=== PATIENT | male | born 1945 | race Caucasian/White ===

== ENCOUNTER 2016-06-01 19:28 | Inpatient (IN) | payer MEDICARE ==
[~2016-06-01] VITALS: Ht 188 cm; Wt 108.6 kg
[2016-06-01] MEDS ORDERED: NS IV 500 ML 500 ML IV SCH (19:55)
--- NOTE | 2016-06-01 20:01 | NUR ---
PATIENT GIVES STAFF PERMISSION TO RELEASE INFORMATION ON HIMSELF TO HIS ROOMATE YAZMIN NAVA SHE WILL ALSO BE THE ONE PICKING HIM UP IF HE DOES GO HOME TONIGHT.
[2016-06-01 20:06] LABS: BASOPHILS % (AUTO) 0 % (0-2); EOSINOPHILS # (AUTO) 0.1 10^3uL; EOSINOPHILS % (AUTO) 0 % (0-4); LYMPHOCYTES # (AUTO) 2.5 X10^3; MEAN CORPUSCULAR HEMOGLOBIN 28.3 PG (26.0-34.0); MEAN PLATELET VOLUME 10.6 FL (6.0-9.5); MONOCYTES # (AUTO) 0.9 X10^3; MONOCYTES % (AUTO) 6 % (3-11); NEUTROPHILS # (AUTO) 12.5 X10^3; NEUTROPHILS % (AUTO) 78 % (51-67); PLATELET COUNT 374 10^3uL (150-450); WHITE BLOOD COUNT 16.02 10^3uL (4.0-11.0)
[2016-06-01 20:08] LABS: MEAN CORPUSCULAR HGB CONC 37.5 g/dL (31.0-37.0); MEAN CORPUSCULAR VOLUME 76 FL (80-100)
[2016-06-01 20:19] LABS: ALBUMIN 4.4 g/dL (3.4-5.0); ANION GAP 17.2 MEQ/L (3-15); CALCULATED IONIZED CALCIUM 3.8 mg/dL (3.8-4.6)
--- NOTE | 2016-06-01 21:36 | NUR ---
REPORSTIONE HOB PT SAYS FEELS LIKE HE IS SITTING ON BUTTOM TO LONG. URINAL ALSO GIVEN TO PT NEEDS TO VOID
--- NOTE | 2016-06-01 21:41 | NUR ---
UA OBTAINED , HAS VERY STRONG FOUL SMELL AND IS DARK YELLOW IN COLOR
[2016-06-01 22:30] LABS: BILIRUBIN,URINE Negative (Negative); CLARITY,URINE Clear; COLOR,URINE Yellow; GLUCOSE, URINE (UA) Negative (Negative); LEUKOCYTE ESTERASE ,URINE Negative (Negative)
[2016-06-01 22:35] LABS: URINE CENTRIFUGED VOLUME 12 mL
[2016-06-01 22:36] LABS: AMPHETAMINE SCREEN, URINE Negative (Negative); CANNABINOID SCREEN, URINE Negative (Negative); METHAMPHETAMINE SCREEN URINE S NEGATIVE (NEGATIVE); OPIATE SCREEN URINE Positive (Negative); PROPOXYPHENE STAT NEGATIVE (NEGATIVE)
--- NOTE | 2016-06-01 22:50 | NUR ---
Pt arrives via cart from ED. Transferred to bed via transfer sling. A/O x3. SL intact. Resp even and non labored on RA. Pt c/o R hip/sciatic pain. Code status discussed with patient. Verbalizes wishes for a "do not resuscitate" order. "If that happens, I just want with dignity." See admission assessment for further details.
[2016-06-01 23:15] VITALS: BP 139/70
[2016-06-02] MEDS ORDERED: CALCIUM CARBONATE CHEWABLE 300 MG (TUMS) TABLET PO PRN
[2016-06-02] MEDS ORDERED: ACETAMINOPHEN 325 MG TAB (TYLENOL) PO PRN
[2016-06-02] MEDS ORDERED: ONDANSETRON 2 MG/ML (Z0FRAN) 2 ML VIAL IV PRN
[2016-06-02 00:02] VITALS: BP 139/70
[2016-06-02] MEDS ORDERED: POTASSIUM CHLORIDE ER 10 MEQ CAPSULE PO ONE (01:00)
[2016-06-02] MEDS: POTASSIUM CHLORIDE ER 10 MEQ CAPSULE PO SCH ×4 (01:14→18:11)
[2016-06-02] MEDS: CYCLOBENZAPRINE 10 MG (FLEXERIL) TAB PO PRN ×2 (01:15→09:20)
[2016-06-02 04:19] VITALS: BP 128/76
--- NOTE | 2016-06-02 06:11 | NUR ---
Pt rests in long intervals after admission. PRN Flexeril given x1 for hip pain. NS cont infusing w/o difficulty. No needs at this time.
[2016-06-02 06:28] LABS: BASOPHILS % (AUTO) 0 % (0-2); EOSINOPHILS # (AUTO) 0.2 10^3uL; EOSINOPHILS % (AUTO) 2 % (0-4); LYMPHOCYTES # (AUTO) 2.9 X10^3; MEAN CORPUSCULAR HEMOGLOBIN 28.1 PG (26.0-34.0); MEAN PLATELET VOLUME 10.4 FL (6.0-9.5); MONOCYTES # (AUTO) 0.8 X10^3; MONOCYTES % (AUTO) 7 % (3-11); NEUTROPHILS # (AUTO) 7.3 X10^3; NEUTROPHILS % (AUTO) 64 % (51-67); PLATELET COUNT 300 10^3uL (150-450); WHITE BLOOD COUNT 11.27 10^3uL (4.0-11.0)
[2016-06-02 06:30] LABS: ALBUMIN 3.5 g/dL (3.4-5.0); ANION GAP 10.9 MEQ/L (3-15); TOTAL PROTEIN 6.5 g/dL (6.4-8.5)
[2016-06-02] MEDS: POTASSIUM CL IVPB 50 ML IV SCH ×11 (06:39→23:39)
--- NOTE | 2016-06-02 06:42 | NUR ---
Notified by Dr Torres of pt's critical potassium level. Dr Torres gives orders to replace potassium IV. First bag of potassium initiated. Pt updated on plan of care. Denies needs at this time.
[2016-06-02 06:52] LABS: MEAN CORPUSCULAR HGB CONC 36.6 g/dL (31.0-37.0); MEAN CORPUSCULAR VOLUME 77 FL (80-100)
[2016-06-02 08:13] VITALS: BP 168/68
[2016-06-02] MEDS: LIDOCAINE (LIDODERM) 5% PATCH TOP SCH (08:13)
[2016-06-02] MEDS: ENOXAPARIN 40 MG/0.4 ML (LOVENOX) SYR SC SCH (08:13)
[2016-06-02] MEDS: NYSTATIN POWDER 100,000 UNITS 15 GM BTL TOP SCH ×3 (10:05→18:14)
--- NOTE | 2016-06-02 11:15 | NUR ---
MED REC COMPLETED-current med list obtained from Ext Med History application and patient interview. By Ventura Frank, PharmD Candidate 2017.
[2016-06-02 11:18] VITALS: BP 124/65
[2016-06-02] MEDS ORDERED: NS FLUSH 10 ML PRN IV (11:55)
[2016-06-02] MEDS ORDERED: NS FLUSH 3 ML PRN IV (11:55)
[2016-06-02] MEDS ORDERED: DOCUSATE SODIUM 100 MG (COLACE) CAP PO ONE ×2 (13:45→16:14)
[2016-06-02 15:44] VITALS: BP 112/49
--- NOTE | 2016-06-02 17:54 | NUR ---
Pt has required maximum 2 assist throughout the shift, though pt seems to be getting stronger with each transfer. Skin warm, dry, intact. Resprs nonlabored, even on RA. Pt showered this morning with assistance. Groin is quite red bilaterally, though nystatin powder appears to be helping already. SL intact. Calls for assistance. Denies needs.
[2016-06-02] MEDS ORDERED: NS IV 500 ML 500 ML ONE (19:18)
[2016-06-02] MEDS: HYDROcodone/APAP 5 MG/325 MG (NORCO) TAB PO PRN (19:23)
--- NOTE | 2016-06-02 19:23 | NUR ---
PRN [place] given at this time for c/o R leg pain rated 7/10. IV KCl initiated at this time. Pt denies other needs.
[2016-06-02 19:59] VITALS: BP 149/72
[2016-06-02] MEDS: DOCUSATE SODIUM 100 MG (COLACE) CAP PO SCH (20:07)
[2016-06-02] MEDS: LIDOCAINE PATCH REMOVAL TOP SCH (20:08)
[2016-06-03 00:24] VITALS: BP 147/84
[2016-06-03] MEDS: POTASSIUM CL IVPB 50 ML IV SCH ×7 (00:51→17:15)
--- NOTE | 2016-06-03 03:59 | NUR ---
Pt lying in bed watching TV. Denies c/o.
[2016-06-03] MEDS: HYDROcodone/APAP 5 MG/325 MG (NORCO) TAB PO PRN ×4 (04:08→20:26)
[2016-06-03 04:30] VITALS: BP 128/82
--- NOTE | 2016-06-03 06:34 | NUR ---
Pt rests intermittently throughout the night. Pt tolerates potassium infusion w/o difficulty. PRN norco given for right hip/leg pain. SL intact. Resp even and non labored on RA. Pt up to chair with staff assist x2 and walker.
[2016-06-03 06:41] LABS: ALBUMIN 3.3 g/dL (3.4-5.0); ANION GAP 11.8 MEQ/L (3-15); MAGNESIUM* 2.4 mg/dL (1.6-2.3); PHOSPHORUS 2.6 mg/dL (2.4-4.9)
--- NOTE | 2016-06-03 07:30 | NUR ---
Patient awake in bed upon shift assessment. Alert and oriented X3. Reports bilateral hip pain rated 6/10 on pain scale. Denies SOA, nausea, muscle cramps, or other distress. Respirations even and non-labored on roomair. Telemetry intact and reflecting NSR with PVC at a rate of 70 bpm. No edema noted to BLE. Updated patient on plan of care for shift. Yellow gown and bed alarm intact for safety. Call light in reach.
[2016-06-03 07:42] VITALS: BP 143/85
[2016-06-03] MEDS ORDERED: POTASSIUM CHLORIDE ER 20 MEQ TABLET PO ONE (08:00)
[2016-06-03] MEDS: ENOXAPARIN 40 MG/0.4 ML (LOVENOX) SYR SC SCH (08:17)
[2016-06-03] MEDS: NS FLUSH 3 ML DAILY IV SCH (08:17)
[2016-06-03] MEDS: LIDOCAINE (LIDODERM) 5% PATCH TOP SCH (08:17)
[2016-06-03] MEDS: DOCUSATE SODIUM 100 MG (COLACE) CAP PO SCH ×2 (08:17→20:29)
[2016-06-03] MEDS: NYSTATIN POWDER 100,000 UNITS 15 GM BTL TOP SCH ×3 (08:18→17:19)
[2016-06-03] MEDS: CYCLOBENZAPRINE 10 MG (FLEXERIL) TAB PO PRN (08:18)
[2016-06-03 08:55] LABS: BILIRUBIN,URINE Negative (Negative); CLARITY,URINE Clear; GLUCOSE, URINE (UA) Negative (Negative); LEUKOCYTE ESTERASE, URINE Negative (Negative); PH,URINE 6.5 (5.0 - 8.0); UROBILINOGEN,URINE 0.2 mg/dL (0.2-1.0)
[2016-06-03 09:02] LABS: COLOR,URINE Dark Yellow
[2016-06-03 09:04] LABS: RBC,URINE 20-50 /HPF; URINE CENTRIFUGED VOLUME 12 mL
[2016-06-03 09:06] LABS: URINE POTASSIUM 34 mmoL/L (12-75)
[2016-06-03 11:23] VITALS: BP 131/76
[2016-06-03] MEDS: POTASSIUM CHLORIDE ER 20 MEQ TABLET PO SCH ×2 (12:30→17:15)
--- NOTE | 2016-06-03 13:49 | NUR ---
IV infiltrated in left hand. Discontinued with catheter intact. Small raised area noted, ice pack applied. Two unsuccessful attempts to restart made by this nurse to right back roll lathe operator. Kelsi Lora RN initiates 22g IV into right wrist on second attempt. IV KCl restarted.
[2016-06-03 15:35] VITALS: BP 138/78
--- NOTE | 2016-06-03 17:15 | NUR ---
Dr. More here and orders to hold fifth bag of potassium and get blood draw now. Lab notified.
[2016-06-03 17:45] LABS: ALBUMIN 3.4 g/dL (3.4-5.0); ANION GAP 11.7 MEQ/L (3-15); MAGNESIUM* 2.4 mg/dL (1.6-2.3); PHOSPHORUS 2.3 mg/dL (2.4-4.9)
--- NOTE | 2016-06-03 18:24 | NUR ---
Patient up to recliner consuming supper. Continues to report bilateral hip pain. Telemetry continues to reflect NSR with PVC. Call light in reach.
[2016-06-03 20:14] VITALS: BP 142/80
[2016-06-03] MEDS: LIDOCAINE PATCH REMOVAL TOP SCH (20:30)
--- NOTE | 2016-06-03 21:00 | NUR ---
Patient refused colace stating if he had too much he would have diarrhea.
--- NOTE | 2016-06-03 23:15 | NUR ---
Patient displayed pause in cardiac rhythm on bedside monitor while watching on third at 23:12, this nurse went to check patient who was observed resting on right side in bed with respirations even non labored. Another pause lasting same as first 1 second at 23:13. Primary RN notified and went to review on monitor in ICU.
--- NOTE | 2016-06-03 23:20 | NUR ---
Last pause at 23:16. Strips printed, primary nurse aware and is notifying hospitalist automation and controls supervisor of change in telemetry. Patient continues to rest in bed with no complaints.
[2016-06-04] VITALS (10 sets, daily range): BP systolic 139–190; BP diastolic 67–109
[2016-06-04] MEDS: HYDROcodone/APAP 5 MG/325 MG (NORCO) TAB PO PRN ×2 (04:57→11:32)
--- NOTE | 2016-06-04 05:00 | NUR ---
[place] given for severe pain raited 01/07. Patient thinks the medication does not work well.
[2016-06-04] MEDS: CYCLOBENZAPRINE 10 MG (FLEXERIL) TAB PO PRN ×2 (05:37→11:32)
--- NOTE | 2016-06-04 05:37 | NUR ---
[place] has not helped relieve pain at this point. Flexeril given. Assisted Patient back to bed. Patient has had low back and leg pain throughout night, but especially this morning. Adjusted in bed for patient comfort. Watching TV.
[2016-06-04 06:03] LABS: MEAN CORPUSCULAR HEMOGLOBIN 28.5 PG (26.0-34.0); MEAN PLATELET VOLUME 10.1 FL (6.0-9.5); WHITE BLOOD COUNT 9.4 10^3uL (4.0-11.0)
[2016-06-04 06:16] LABS: MEAN CORPUSCULAR HGB CONC 35.9 g/dL (31.0-37.0)
[2016-06-04 06:37] LABS: ALBUMIN 3.2 g/dL (3.4-5.0); ANION GAP 10.7 MEQ/L (3-15); MAGNESIUM* 2.2 mg/dL (1.6-2.3); PHOSPHORUS 2.6 mg/dL (2.4-4.9)
--- NOTE | 2016-06-04 07:35 | NUR ---
Patient sleeping in bed upon shift assessment. Arouses easily to verbal stimuli. Alert and oriented X3. Reports bilateral hip pain, right leg pain, and right calf "soreness". Right lower leg mildly larger in size than left lower leg. No redness noted and calf is not warm to touch. HR RRR. Telemetry intact and reflecting NSR with PVC. Respirations even and non-labored on roomair. Updated on plan of care for shift including increased activity, pain management, and potassium replacement. Call light in reach.
[2016-06-04] MEDS: LIDOCAINE (LIDODERM) 5% PATCH TOP SCH (08:23)
[2016-06-04] MEDS: POTASSIUM CHLORIDE ER 20 MEQ TABLET PO SCH ×3 (08:23→17:19)
[2016-06-04] MEDS: NS FLUSH 3 ML DAILY IV SCH ×2 (08:23→08:32)
[2016-06-04] MEDS: ENOXAPARIN 40 MG/0.4 ML (LOVENOX) SYR SC SCH (08:23)
[2016-06-04] MEDS: DOCUSATE SODIUM 100 MG (COLACE) CAP PO SCH ×2 (08:23→21:30)
[2016-06-04] MEDS: NYSTATIN POWDER 100,000 UNITS 15 GM BTL TOP SCH ×3 (08:24→17:15)
[2016-06-04] MEDS ORDERED: POTASSIUM CHLORIDE ER 20 MEQ TABLET PO ONE (08:55)
--- NOTE | 2016-06-04 11:32 | NUR ---
Routine vital signs obtained and BP found to be 180/102 manually. Patient reports lower back pain and right leg pain rated 10/10 on pain scale. PRN [place] and Flexeril provided. Dr. More notified. Patient denies headache or blurred vision. Will continue to monitor.
--- NOTE | 2016-06-04 12:20 | NUR ---
BP remains elevated at 179/[address] More notified. Patient reports lower back pain and right leg pain now rated "12/10" on pain scale. New order received.
[2016-06-04] MEDS ORDERED: HYDROmorphone 1 MG/ML (DILAUDID) SYRINGE IV ONE (12:35)
--- NOTE | 2016-06-04 12:41 | NUR ---
Dr. More here to see patient. Dilaudid 1mg IV X1 administered at this time. Will recheck BP in 30 minutes per order.
--- NOTE | 2016-06-04 13:01 | NUR ---
survey technologist here for BLE ultrasound.
[2016-06-04] MEDS ORDERED: hydrALAZINE 20 MG/ML (APRESOLINE) 1 ML VIAL IV PRN (13:35)
[2016-06-04] MEDS: lisINopril 20 MG (PRINIVIL) TABLET PO SCH (13:46)
--- NOTE | 2016-06-04 17:56 | NUR ---
Patient sits up in recliner before breakfast, for lunch, and for supper. Ambulating with 1 assist and walker. Weak and unsteady gate. Continues to report persistent hip pain. Rests in long intervals this afternoon. BP at 1600= 178/83. Pleasant and cooperative with cares. Telemetry reflecting NSR with PVC. Call light in reach.
[2016-06-04] MEDS: LIDOCAINE PATCH REMOVAL TOP SCH (21:30)
[2016-06-05 00:16] VITALS: BP 144/70
--- NOTE | 2016-06-05 04:31 | NUR ---
Pt is resting in bed asleep, has been up to restroom twice during this shift. Denies pain or discomfort, call light in reach, will continue to monitor.
[2016-06-05 04:41] VITALS: BP 138/72
[2016-06-05 06:09] LABS: MEAN CORPUSCULAR HEMOGLOBIN 28.7 PG (26.0-34.0); WHITE BLOOD COUNT 9.36 10^3uL (4.0-11.0)
[2016-06-05 06:13] LABS: MEAN CORPUSCULAR HGB CONC 35.5 g/dL (31.0-37.0)
[2016-06-05 06:43] LABS: ALBUMIN 3.2 g/dL (3.4-5.0); ANION GAP 10.9 MEQ/L (3-15); CALCULATED IONIZED CALCIUM 4.1 mg/dL (3.8-4.6); MAGNESIUM* 2.1 mg/dL (1.6-2.3); PHOSPHORUS 2.8 mg/dL (2.4-4.9); TOTAL PROTEIN 6.2 g/dL (6.4-8.5)
[2016-06-05 08:06] VITALS: BP 156/82
[2016-06-05] MEDS: HYDROcodone/APAP 5 MG/325 MG (NORCO) TAB PO PRN ×2 (08:45→20:07)
[2016-06-05] MEDS: lisINopril 20 MG (PRINIVIL) TABLET PO SCH (08:45)
--- NOTE | 2016-06-05 08:45 | NUR ---
PRN [place] given at this time for c/o R leg pain rated 9/10. Pt resting in bed upon assessment. SL intact. Skin warm, dry, intact. Resprs nonlabored, even on RA. Pt states he does feel that he is getting stronger. Pt sat up on edge of bed with no assistance. Pt getting up to shower with assistance at this time.
[2016-06-05] MEDS: POTASSIUM CHLORIDE ER 20 MEQ TABLET PO SCH ×3 (08:46→17:41)
[2016-06-05] MEDS: NS FLUSH 3 ML DAILY IV SCH (08:48)
[2016-06-05] MEDS: ENOXAPARIN 40 MG/0.4 ML (LOVENOX) SYR SC SCH (08:48)
[2016-06-05] MEDS: DOCUSATE SODIUM 100 MG (COLACE) CAP PO SCH ×2 (08:54→20:07)
--- NOTE | 2016-06-05 08:56 | NUR ---
NUTRITION ASSESSMENT Level 1 Patient: Thuan Fenton Age/Sex: 70/M Date Screened: 06-05-16 Weight: 238.9#/108.6 kg Height: 74 inches Primary Diagnosis: weakness Diet Order: regular Relevant labs: potassium 2.9, glucose 172, Hgb A1c 7.2 Food allergies: N Nutrition Assessment Criteria Age over 80: N Body Mass Index (BMI) under 19: N Admission Screening Indicates Risk? 3 points Moderate/High Risk Diagnosis: N TPN or PPN: N NPO or clear liquid diet: N Serum Glucose <70 or >180: N Hgb A1c >6.7: 3 points Total: 6 points Risk Screen: __ Patient at low nutritional risk based on available data; reevaluate in 5-7 days __ Patient at moderate nutritional risk based on available data; reevaluate in 3-5 days _X_ Patient at high nutritional risk; complete Nutrition Assessment within 48 hours of admission.
[2016-06-05] MEDS: LIDOCAINE (LIDODERM) 5% PATCH TOP SCH (10:37)
[2016-06-05] MEDS: NYSTATIN POWDER 100,000 UNITS 15 GM BTL TOP SCH ×3 (10:37→19:15)
--- NOTE | 2016-06-05 10:37 | NUR ---
MULTIDISCIPLINARY MTG/DR. NGO: Pt. admitted for hypokalemia and hypertension. Pt. has been slow to improve. Unclear what is causing this. Pt. will have a CT of his abdomen and pelvis today. No discharge needs identified at this time.
--- NOTE | 2016-06-05 10:47 | NUR ---
NUTRITION ASSESSMENT Level II Patient: Thuan Fneton Age/Sex: 70/M Date Assessed: 06-05-16 ASSESSMENT Pertinent History: Patient admitted with weakness and screened at high nutritional risk secondary to decreased appetite with progressive weakness x3 weeks and constipation, and elevated Hgb A1c. PMHx includes chronic pain. He lives at [facility] with a significant other and receives Meals on Wheels. Pt. normally eats well, but he does not like rice or pasta. Weight has been stable; last documented weight was 241# in 2015. He has had 1 bowel movement since admission 06-01-16. Meds/Nutrition: KCl, [place] Weight: 238.9#/108.6 kg Height: 74 inches Body Mass Index (BMI): 30.7 [place] Body Weight : 190#/86.3 kg % IBW: 125% GASTROINTESTINAL Appetite: fair; eating bites-100% (average 70%) Diet Order: regular Unintentional loss of >10 lbs. in 3 months: N Difficult to chew/swallow: N Diabetes: N Relevant Labs: potassium 2.9, glucose 172, Hgb A1c 7.2, urine drug screen (+) opiates Calculations for Nutritional Assessment Estimated calorie needs: 22-25 kcals/kg = 2,370-2,700 kcals Estimated protein needs: 1.0-1.1 g/kg ABW = 91-101 g./day DIAGNOSIS 1. 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 NUTRITIONAL INTERVENTION Goal: Patient will receive adequate nutrition to meet his needs. Plan: Recommend gradually increase fiber in his diet and encourage plenty of fluids to help with constipation. Will provide regular diet and monitor intake for adequacy. MONITORING & EVALUATION _X_ Monitor patients menu selections _X_ Monitor patients food intake per nursing notes __ Monitor NPO/clear liquid days _X_ Monitor lab values __ Monitor I&O __ Other
[2016-06-05] MEDS ORDERED: POTASSIUM CHLORIDE ER 20 MEQ TABLET PO ONE (11:35)
[2016-06-05 11:58] VITALS: BP 142/65
[2016-06-05] MEDS: CYCLOBENZAPRINE 10 MG (FLEXERIL) TAB PO PRN ×2 (13:31→23:55)
[2016-06-05 17:36] VITALS: BP 153/75
--- NOTE | 2016-06-05 18:11 | NUR ---
Pt up to chair multiple times this shift. Pt states "it's just not comfortable for my leg, but I'm trying". SL intact. Skin warm, dry, intact. Resprs nonlabored, even on RA. BSC removed from room. Pt has been ambulating to RR and back with SBA and walker. Denies needs at this time.
[2016-06-05] MEDS: LIDOCAINE PATCH REMOVAL TOP SCH (20:07)
[2016-06-05 20:13] VITALS: BP 152/80
[2016-06-06 00:39] VITALS: BP 180/77
[2016-06-06] MEDS: HYDROcodone/APAP 5 MG/325 MG (NORCO) TAB PO PRN ×3 (01:29→20:33)
[2016-06-06 06:30] VITALS: BP 162/83
[2016-06-06 06:35] LABS: MEAN CORPUSCULAR HEMOGLOBIN 28.1 PG (26.0-34.0); MEAN CORPUSCULAR HGB CONC 34.7 g/dL (31.0-37.0); MEAN PLATELET VOLUME 10.2 FL (6.0-9.5); WHITE BLOOD COUNT 8.57 10^3uL (4.0-11.0)
[2016-06-06 07:11] LABS: ALBUMIN 3.7 g/dL (3.4-5.0); ANION GAP 13.3 MEQ/L (3-15); MAGNESIUM* 2.1 mg/dL (1.6-2.3); PHOSPHORUS 2.9 mg/dL (2.4-4.9)
--- NOTE | 2016-06-06 07:12 | NUR ---
Pt rests with minimal c/o. PRN norco and flexiril provided for right hip pain. SL x2 intact. Resp even and non labored on RA.
[2016-06-06 07:40] VITALS: BP 154/84
[2016-06-06] MEDS: LIDOCAINE (LIDODERM) 5% PATCH TOP SCH (08:08)
[2016-06-06] MEDS: ENOXAPARIN 40 MG/0.4 ML (LOVENOX) SYR SC SCH (08:08)
[2016-06-06] MEDS: DOCUSATE SODIUM 100 MG (COLACE) CAP PO SCH ×2 (08:09→20:32)
[2016-06-06] MEDS: NS FLUSH 3 ML DAILY IV SCH (08:10)
[2016-06-06] MEDS: CYCLOBENZAPRINE 10 MG (FLEXERIL) TAB PO PRN ×2 (08:10→20:32)
[2016-06-06] MEDS: POTASSIUM CHLORIDE ER 20 MEQ TABLET PO SCH ×3 (08:10→17:08)
[2016-06-06] MEDS: lisINopril 20 MG (PRINIVIL) TABLET PO SCH (08:10)
[2016-06-06] MEDS: NYSTATIN POWDER 100,000 UNITS 15 GM BTL TOP SCH ×3 (08:16→17:08)
--- NOTE | 2016-06-06 08:30 | NUR ---
Flexeril and [place] 5mg PO given as ordered for c/o Rt sciatic pain. Pt sitting on edge of bed eating bfst meal.
[2016-06-06 11:33] VITALS: BP 175/97
[2016-06-06] MEDS ORDERED: POTASSIUM CHLORIDE ER 20 MEQ TABLET PO ONE (12:45)
--- NOTE | 2016-06-06 15:45 | NUR ---
Visited with Pt. about going to [facility] for skilled care. Pt. has been accepted to [facility]. Pt. was made aware that Medicare would only cover his first 20 days 100% and after that he would have an out of pocket expense. Pt. stated he doesn't plan on being there that long. SW also informed him [facility] is a no smoking campus. Pt. was okay with this and agreeable to going to [facility].
[2016-06-06 16:10] VITALS: BP 173/89
[2016-06-06 19:52] VITALS: BP 158/76
--- NOTE | 2016-06-06 19:58 | NUR ---
Pt is resting in bed watching tv, alert and oriented x4, Resp are even and nonlabored, LCTAB, BS are active x 4 quadrants, running SR on telemetry. Pt rates pain 5/10 at this time, request pain medication with his bedtime medication. SL's are patent, no redness, swelling, or s/s of infection noted at this time. Tab alarm is in place, pt does call appropriately. Call light is in reach, will continue to monitor.
[2016-06-06] MEDS: LIDOCAINE PATCH REMOVAL TOP SCH (20:33)
[2016-06-07 00:01] VITALS: BP 153/76
[2016-06-07] MEDS: HYDROcodone/APAP 5 MG/325 MG (NORCO) TAB PO PRN ×2 (00:18→08:02)
[2016-06-07 04:23] VITALS: BP 187/92
--- NOTE | 2016-06-07 04:34 | NUR ---
Pt is resting in bed asleep, has been up to restroom 3 x's this shift and has called appropriately. Call light is in reach, will continue to monitor.
[2016-06-07 07:15] LABS: ALBUMIN 3.4 g/dL (3.4-5.0); ANION GAP 12.3 MEQ/L (3-15); MAGNESIUM* 1.8 mg/dL (1.6-2.3); PHOSPHORUS 3.1 mg/dL (2.4-4.9)
--- NOTE | 2016-06-07 07:25 | NUR ---
Pt transferred 1 SBA using walker from bed to chair for bfst meal. Ambulated to bathroom with 1 SBA. Limps on Rt leg. Yellow gown/socks in place, tabs alarm for ptsafety- pt calls for assist appropriately. Alert/oriented x4. Remains on RA, Resp even, nonlab. Skin warm, dry, intact. SL x2 in place. Belongings and call light within reach.
--- NOTE | 2016-06-07 07:45 | NUR ---
Dr. Torres at bedside.
[2016-06-07 08:00] VITALS: BP 147/93
[2016-06-07] MEDS: ENOXAPARIN 40 MG/0.4 ML (LOVENOX) SYR SC SCH (08:01)
[2016-06-07] MEDS: CYCLOBENZAPRINE 10 MG (FLEXERIL) TAB PO PRN (08:01)
[2016-06-07] MEDS: lisINopril 20 MG (PRINIVIL) TABLET PO SCH (08:01)
[2016-06-07] MEDS: LIDOCAINE (LIDODERM) 5% PATCH TOP SCH (08:01)
[2016-06-07] MEDS: NYSTATIN POWDER 100,000 UNITS 15 GM BTL TOP SCH (08:02)
[2016-06-07] MEDS: POTASSIUM CHLORIDE ER 20 MEQ TABLET PO SCH (08:02)
[2016-06-07] MEDS: DOCUSATE SODIUM 100 MG (COLACE) CAP PO SCH (08:02)
[2016-06-07] MEDS: NS FLUSH 3 ML DAILY IV SCH (08:03)
--- NOTE | 2016-06-07 08:08 | NUR ---
Flexeril 10mg and [place] 5mg PO given now for c/o Rt sciatic pain- premed for working with PT/OT.
[2016-06-07] MEDS ORDERED: amLODIPine 2.5MG (NORVASC) TAB PO ONE ×2 (08:19→08:35)
--- NOTE | 2016-06-07 10:06 | NUR ---
Pt. will discharge to [facility] for skilled care. Pt. will go to house [address]. 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 Pt. daughter brought Pt. some belongings.
--- NOTE | 2016-06-07 10:33 | NUR ---
Report called to [facility] at ext [phone] given to Martha CASTILLO in [address]. Questions answered. Dr. Garnica notified that [place] script needs to be printed and sent to [place].
--- NOTE | 2016-06-07 10:53 | NUR ---
[place] script printed, signed/copies and faxed to [place] [id number]
--- NOTE | 2016-06-07 11:02 | NUR ---
Pt dismissed to [facility] via w/c accompanied by [place] [place] [facility].
[2016-06-07 14:31] LABS: ALDOSTERONE SERUM <4.0 ng/dL (<=21)
== END 2016-06-07 11:05 | DRG 641 ==
LOC: EDBD 19:28 → ED 19:29 → MED/SURG 22:10 → OBSVTOIN 06-02 06:00
PROVIDERS: ADMIT Family Medicine; ATTEND Family Medicine
DX: E87.6 Hypokalemia (principal); Z66 Do not resuscitate; R53.1 Weakness; E86.0 Dehydration; G89.29 Other chronic pain; K59.00 Constipation, unspecified; L30.4 Erythema intertrigo; M54.31 Sciatica, right side; R73.9 Hyperglycemia, unspecified; M54.9 Dorsalgia, unspecified; M79.1 Myalgia; I10 Essential (primary) hypertension
CPT/HCPCS: 36415; 71010; 72100; 72202; 74178; 80048; 80053; 80069; 80307; 81003; 81015; 82088; 82436; 82530; 82550; 82553; 82570; 83036; 83735; 84100; 84132; 84133; 84244; 84300; 84484; 84550; 85025; 85027; 85379; 85610; 85730; 93005; 93010; 93970; 96360; 96361; 99284; 99285

== ENCOUNTER → 2016-06-01 | Outpatient (CLI) | payer MEDICARE | LOC: EMS 19:20 | PROVIDERS: ATTEND Family Medicine | DX: M54.31 Sciatica, right side (principal); R29.898 Other symptoms and signs involving the musculoskeletal system ==

== ENCOUNTER → 2016-06-13 | Outpatient (REF) | payer MEDICARE ==
[2016-06-13 09:30] LABS: ANION GAP 17.8 MEQ/L (3-15)
== END ==
LOC: LAB 09:08
PROVIDERS: ATTEND Family Medicine
DX: R79.89 Other specified abnormal findings of blood chemistry (principal)
CPT/HCPCS: 80048

== ENCOUNTER → 2016-06-16 | Outpatient (CLI) | payer MEDICARE | LOC: RAD 09:00 | PROVIDERS: ATTEND Family Medicine | DX: M54.5 Low back pain (principal); M48.06 Spinal stenosis, lumbar region | CPT/HCPCS: 72148 ==

== ENCOUNTER → 2016-06-26 | Outpatient (CLI) | payer MEDICARE ==
[~2016-06-26] MED LIST: methylPREDNISolone 80 MG/ML (DEPO MEDROL) VIAL IM ONE
== END ==
LOC: PMC 12:57
PROVIDERS: ATTEND Family Medicine
PROC: 3E0R33Z Introduction of Anti-inflammatory into Spinal Canal, Percutaneous Approach (ICD-10-PCS; principal; 2016-06-26)
DX: M54.5 Low back pain (principal)